=== PATIENT | female | born 1975 | race Caucasian/White ===

== ENCOUNTER 2019-02-19 01:44 | Emergency (ER) | payer OTHER ==
[~2019-02-19] VITALS: Ht 157.5 cm; Wt 65.8 kg
[2019-02-19 02:12] LABS: BASOPHILS 0.8 % (0.0-2.0); EOSINOPHILS 3.6 % (0.0-3.0); HEMATOCRIT 35.8 % (37.0-47.0); HEMOGLOBIN 12.2 gm/dL (12.0-15.0); LYMPHOCYTES 23.6 % (24.0-44.0); MCH 28.4 pg (26.0-34.0); MCV 83.5 fL (80.0-100.0); MONOCYTES 8.6 % (1.0-8.0); PLATELET COUNT 286 thou/uL (150-400); POLYS 63.4 % (36.0-66.0); RBC 4.28 mil/uL (4.20-5.00); RDW 13.6 % (10.5-14.5); WBC 7.8 thou/uL (4.0-11.0)
[2019-02-19 02:19] LABS: ANION GAP 7 mmol/L (7-16); BUN 14 mg/dL (7-18); CALCIUM 8.6 mg/dL (8.5-10.1); CHLORIDE 104 mmol/L (98-107); CO2 29 mmol/L (21-32); CREATININE 0.9 mg/dL (0.6-1.0); GLUCOSE 98 mg/dL (74-106); POTASSIUM 3.4 mmol/L (3.5-5.1); SODIUM 140 mmol/L (136-145)
[2019-02-19 02:30] LABS: ALBUMIN 3.3 g/dL (3.4-5.0); LIPASE 186 U/L (73-393); MAGNESIUM 2.1 mg/dL (1.8-2.4); SGOT 18 U/L (15-37); SGPT 19 U/L (30-65); TOTAL BILIRUBIN 0.3 mg/dL (<0.1-1.0); TROPONIN-I <0.06 ng/mL (<0.06)
[2019-02-19 03:20] LABS: URINE BILIRUBIN NEGATIVE (Negative); URINE BLOOD NEGATIVE (Negative); URINE CLARITY SL CLOUDY; URINE COLOR YELLOW; URINE GLUCOSE-RANDOM* NEGATIVE (Negative); URINE KETONES NEGATIVE (Negative); URINE LEUKOCYTES-REFLEX NEGATIVE (Negative); URINE NITRITE-REFLEX NEGATIVE (Negative); URINE PROTEIN (DIPSTICK) NEGATIVE (Negative)
[2019-02-19 05:27] VITALS: BP 106/63
[2019-02-19] MEDS ORDERED: PROAIR HFA8.5 GM INH (05:28)
[2019-02-19] MEDS ORDERED: PEPCID40 MG PO (05:28)
--- NOTE | 2019-02-19 15:27 | EKG ---
[address] [place] [address] [employer] [place] [address] ELECTROCARDIOGRAM REPORT Name: DELVIN DIXONBERLY GALINA Room #: [facility]P [facility]ENTERPorter[facility] [id number] ������������������ Admission: 02/19/19 ������������������ Attend Phys: Discharge: 02/19/19 ������������������ Date of : 77 Report #: [id number] ����������������������������������������������������������������� [id number] THIS REPORT FOR: //name// [facility] ED Test Date: 2019-02-19 Test Time: 01:52:47 Pat Name: JOSE MANUEL DIXON Department: Room: Gender: F [employer] Supervisor: : 1975 Requested By: Edward Sadler Order Number: [id number] MD: Lauri Ross Measurements Intervals [place] Rate: 67 P: 28 TN: 150 QRS: 50 QRSD: 88 T: 48 QT: 395 QTc: 417 Interpretive Statements Sinus rhythm Probable anteroseptal infarct, old Compared to ECG 06/30/2007 11:15:01 Septal Q waves are now present Sinus tachycardia no longer present T-wave abnormality no longer present Electronically Signed On 02-19-2019 15:27:11 CDT by Lauri Ross [email or web address] ��������������������������������������������� <ELECTRONICALLY SIGNED> ���������������������������������������� By: Lauri Ross MD, [facility] ��������������������������������������������� 02/19/19 1527 [id number] Lauri Ross MD, [facility] /EPI
== END 2019-02-19 05:38 | disposition home or self-care (01) ==
LOC: ER 01:44
PROVIDERS: Emergency Medicine
DX: R07.89 Other chest pain (principal); J45.909 Unspecified asthma, uncomplicated; Z86.2 Personal history of diseases of the blood and blood-forming organs and certain disorders involving the immune mechanism; Z88.5 Allergy status to narcotic agent